=== PATIENT | female | born 2000 | race Caucasian/White ===

== ENCOUNTER 2025-11-02 15:36 | Emergency (ER) | payer OTHER ==
--- NOTE | 2025-11-02 15:43 | ERPHSYRPT ---
- History of Present Illness Time Seen by Provider: 11/02/25 15:42 Source: patient Exam Limitations: no limitations Physician History: This is an obese 25-year-old white female patient who presents to the emergency department 10 days spontaneous vaginal delivery with the complaint of 1 day history of right lower quadrant pain that responds to ibuprofen but recurred today worse than yesterday. There has been no associated vomiting or diarrhea. She is not breast-feeding. There is been no other symptoms per her report. Patient has had a cholecystectomy in the past but no other intra- abdominal or pelvic surgeries. Timing/Duration: yesterday, worse Activites at Onset: none Quality: sharpness, stabbing Onset Location: RLQ Severity of Pain-Max: moderate Severity of Pain-Current: mild Sexual intercourse history: non-contributory Modifying Factors: Improves With: nothing Associated Symptoms: abdominal pain (Right lower quadrant) Allergies/Adverse Reactions: No Known Drug Allergies Allergy (Unverified 10/23/25 03:05) Home Medications: Aspirin 81 gm Chew [Baby Aspirin 81 mg Chew] 81 mg PO DAILY 10/22/25 [History] Ferrous Sulfate 325 mg PO DAILY 10/22/25 [History] No122/Iron/Folic Acid [ Multi Tablet] 1 each PO DAILY 10/22/25 [History] Travel Risk - International Travel Have you traveled outside of the country in past 3 weeks: No - Emerging Infectious Disease Are you exhibiting symptoms associated with any current EIDs: No - Review of Systems Constitutional: No Symptoms Eyes: No Symptoms Ears, Nose, & Throat: No Symptoms Respiratory: No Symptoms Cardiac: No Symptoms Abdominal/Gastrointestinal: Abdominal Pain (Right lower quadrant) Genitourinary Symptoms: No Symptoms Musculoskeletal: No Symptoms Skin: No Symptoms Neurological: No Symptoms Psychological: No Symptoms Endocrine: No Symptoms Hematologic/Lymphatic: No Symptoms Immunological/Allergic: No Symptoms All Other Systems: Reviewed and Negative - Past Medical History Pertinent Past Medical History: No Neurological History: No Pertinent History ENT History: No Pertinent History Cardiac History: No Pertinent History Respiratory History: No Pertinent History Endocrine Medical History: No Pertinent History Musculoskeletal History: No Pertinent History GI Medical History: No Pertinent History History: No Pertinent History Psycho-Social History: No Pertinent History Female Reproductive Disorders: No Pertinent History - Past Surgical History Past Surgical History: Yes Neuro Surgical History: No Pertinent History Cardiac: No Pertinent History Respiratory: No Pertinent History Gastrointestinal: Cholecystectomy Genitourinary: No Pertinent History Musculoskeletal: No Pertinent History Female Surgical History: No Pertinent History Other Surgical History: wisdom tooth removal - Social History Smoking Status: Former smoker How long have you smoked: 7 years Exposure to second hand smoke: Yes Drug Use: none - Social Determinants of Health Will the patient participate in the screening: Yes Do you worry about a steady place to live?: No In the past 12 months,have you had to go without utilities?: No Transportation Issues: No Has anyone in your support network made you feel unsafe?: No Have you or anyone in your house had to go w/o enough food: No - Nursing Vital Signs Nursing Vital Signs: Initial Vital Signs Temperature 97.9 F 11/02/25 15:37 Pulse Rate 71 11/02/25 15:37 Respiratory Rate 18 11/02/25 15:37 Blood Pressure 120/56 11/02/25 15:37 O2 Sat by Pulse Oximetry 96 11/02/25 15:37 Pain Scale Pain Intensity 6 - Physical Exam General Appearance: no apparent distress, alert, anxiety, obese Eye Exam: PERRL/EOMI, eyes nml inspection Ears, Nose, Throat Exam: normal ENT inspection, moist mucous membranes Neck Exam: normal inspection, non-tender, supple Respiratory Exam: normal breath sounds, lungs clear, airway intact, No chest tenderness, No respiratory distress Cardiovascular Exam: regular rate/rhythm, normal heart sounds, normal peripheral pulses Gastrointestinal/Abdomen Exam: soft, normal bowel sounds, tenderness (Right lower quadrant to palpation), guarding (Right lower quadrant palpation), rebound (Mild right lower quadrant to palpation) Pelvic Exam: not done Rectal Exam: not done Back Exam: normal inspection, normal range of motion, No CVA tenderness, No vertebral tenderness Extremity Exam: normal inspection, normal range of motion, pelvis stable Neurologic Exam: alert, oriented x 3, cooperative, siding stapler II-XII nml as tested, nml cerebellar function, nml station & gait, sensation nml Skin Exam: normal color, warm, dry Lymphatic Exam: No adenopathy SpO2 Interpretation: normal O2 Delivery: Room Air - Course Nursing assessment & vital signs reviewed: Yes Ordered Tests: Active Orders 24 hr Category Date Time Status IV Insertion STAT Care 11/02/25 16:35 Active ABDOMEN AND PELVIS W/0 CONTRAS [CT] Stat Exams 11/02/25 16:36 Completed AMYLASE Stat Lab 11/02/25 16:45 Completed CBC W DIFF Stat Lab 11/02/25 16:45 Completed CMP Stat Lab 11/02/25 16:45 Completed CULTURE,URINE Stat Lab 11/02/25 16:36 Received LIPASE Stat Lab 11/02/25 16:45 Completed UA W/RFX UR CULTURE Stat Lab 11/02/25 16:36 Completed Medication Summary Discontinued Medications Generic Name Dose Route Start Last Admin Trade Name Freq PRN Reason Stop Dose Admin Cefdinir 300 mg 11/02/25 18:41 Cefdinir 300 Mg Capsule PO 11/02/25 18:42 STAT ONE Sodium Chloride 1,000 mls @ 999 mls/hr 11/02/25 16:35 11/02/25 18:27 Sodium Chloride 0.9% 1000 Ml IV 11/02/25 17:35 Infused .Q1H1M STA Infusion Sodium Chloride Confirm 11/02/25 17:03 Sodium Chloride 0.9% 1000 Ml Administered 11/02/25 17:04 Dose 1,000 mls @ ud .ROUTE .STK-MED ONE Lab/Rad Data: Laboratory Result Diagrams 11/02/25 16:45 11/02/25 16:45 Laboratory Results 11/02/25 11/02/25 11/02/25 Range/Units 16:45 16:45 16:36 WBC 8.8 (3.98-10.04) x10^3/uL RBC 4.52 (3.93-5.22) x10^6/uL Hgb 13.1 (11.2-15.7) g/dL Hct 38.8 (34.1-44.9) % MCV 85.8 (79.4-94.8) fL MCH 29.0 (25.6-32.2) pg MCHC 33.8 (32.2-35.5) g/dL RDW 13.2 (11.7-14.4) % Plt Count 406 H (182-369) x10^3/uL MPV 10.1 (9.4-12.3) fL Gran % 72.8 H (34.0-71.1) % Immature Gran % (Auto) 0.3 (0.001-0.429) % Nucleat RBC Rel Count 0.0 (0.00-0.2) % Eos # (Auto) 0.06 (0.04-0.36) x10^3/uL Immature Gran # (Auto) 0.03 (0.001-0.031) x10^3u/L Absolute Lymphs (auto) 1.64 (1.18-3.74) x10^3/uL Absolute Monos (auto) 0.63 (0.24-0.86) x10^3/uL Absolute Nucleated RBC 0.00 (0.00-0.012) x10^3u/L Lymphocytes % 18.7 L (19.3-51.7) % Monocytes % 7.2 (4.7-12.5) % Eosinophils % 0.7 (0.7-5.8) % Basophils % 0.3 (0.1-1.2) % Absolute Granulocytes 6.36 H (1.56-6.13) x10^3/uL Basophils # 0.03 (0.01-0.08) x10^3/uL Sodium 136 (135-145) mmol/L Potassium 3.7 (3.5-5.1) mmol/L Chloride 102 (98-107) mmol/L Carbon Dioxide 24 (22-30) mmol/L Anion Gap 13.3 (5-15) MEQ/L BUN 12 (7-17) mg/dL Creatinine 0.64 (0.52-1.04) mg/dL Estimated GFR 127.3 ML/MIN Glucose 91 (74-106) mg/dL Calcium 9.9 (8.4-10.2) mg/dL Total Bilirubin 0.50 (0.2-1.3) mg/dL AST 24 (14-36) U/L ALT 21 (0-35) U/L Alkaline Phosphatase 114 (38-126) U/L Serum Total Protein 8.0 (6.3-8.2) g/dL Albumin 4.2 (3.5-5.0) g/dL Amylase 59 (30-110) U/L Lipase 49 (23-300) U/L Urine Color Yellow (Yellow) Urine Appearance Cloudy A (Clear) Urine pH 5.5 (4.6-8.0) Ur Specific [place] 1.020 (1.005-1.030) Urine Protein 300 A (Negative) Urine Glucose (UA) Negative (Negative) mg/dL Urine Ketones Negative (Negative) Urine Blood Moderate A (Negative) Urine Nitrite Positive A (Negative) Urine Bilirubin Negative (Negative) Urine Urobilinogen 0.2 (0.2) mg/dL Ur Leukocyte Esterase Moderate A (Negative) U Hyaline Cast (Auto) 3-5 A (0-2) /LPF Urine Microscopic RBC 6-10 A (0-5) /HPF Urine Microscopic WBC >100 A (0-5) /HPF Ur Epithelial Cells None Seen (None Seen) /HPF Urine Bacteria Many A (None Seen) /HPF Urine Culture Reflexed YES (NO) - Progress Progress: re-examined Air Movement: good Progress Note: 11/02/25 16:50 My medical decision making and the assignment of moderate complexity of this patient's medical issue today is based on review of the patient's past medical history, reviewed the patient's medication list, reviewed patient drug allergy list, history present illness and physical findings on examination. The workup in this patient includes placement of intravenous line, infusion of normal saline solution, CBC, CMP, amylase, lipase, urinalysis, CT scan of the abdomen pelvis without contrast. Patient does not require any antiemetics or desire any pain medicine at this time. Differential diagnosis includes was not limited to acute ovarian pathology, intra-abdominal fluid collection, infected intra-abdominal fluid collection, pyelonephritis, ureterolithiasis, acute appendicitis 11/02/25 17:37 The urinalysis is pending. I interpreted the remainder of the laboratory data results. Based on the laboratory data results there are no acute, emergent medical issues. The CT scan of the abdomen pelvis was interpreted by the radiologist and I reviewed the impression. The impression states nonspecific prominent uterus. Remaining CT scan of the abdomen pelvis without contrast is normal. There is no evidence of stomach or bowel obstruction. The appendix is normal. There is no evidence of free fluid or free air. 11/02/25 18:42 I interpreted the urinalysis as urinary tract infection. Blood Culture(s) Obtained: No Antibiotics given: Yes Medical Desision Making - Risk of complications Low Risk: Low risk of morbidity from additional dx testing or treatment The pt has a mod risk of morbidity or mortality based on: Need for prescription drug management - Departure Departure Disposition: Home Clinical Impression: Abdominal pain, UTI (urinary tract infection) Condition: Stable Critical Care Time: No Referrals: CHRIS VICTOR DO [Primary Care Provider, OBSTETRICS-GYNECOLOGY] - Follow up/PCP as directed Additional Instructions: Drink plenty of fluids. Use Tylenol and ibuprofen for pain control. Take your antibiotics as prescribed. Call your primary care provider tomorrow, 11/03/2025, to make arrangements for follow-up appointment for further evaluation and management and to be seen in the next 5 to 7 days. Prescriptions: Cefdinir 300 mg PO BID #14 cap
[2025-11-02 16:51] LABS: BASOPHIL % 0.3 % (0.1-1.2); Basophil (Absolute #) 0.03 x10^3/uL (0.01-0.08); Eosinophil (Absolute #) 0.06 x10^3/uL (0.04-0.36); Hematocrit 38.8 % (34.1-44.9); Hemoglobin 13.1 g/dL (11.2-15.7); IMMATURE GRAN # 0.03 x10^3u/L (0.001-0.031); IMMATURE GRAN % 0.3 % (0.001-0.429); Lymphocyte (Absolute #) 1.64 x10^3/uL (1.18-3.74); Mean Corpuscular Hemoglobin 29.0 pg (25.6-32.2); Mean Corpuscular Hgb Concent. 33.8 g/dL (32.2-35.5); Monocyte (Absolute #) 0.63 x10^3/uL (0.24-0.86); NUCLEATED RBC # 0.00 x10^3u/L (0.00-0.012); NUCLEATED RBC % 0.0 % (0.00-0.2); Platelet Count 406 x10^3/uL (182-369); Red Blood Count 4.52 x10^6/uL (3.93-5.22); White Blood Count 8.8 x10^3/uL (3.98-10.04)
[2025-11-02 16:57] VITALS: RESP 18; TEMP 97.9
[2025-11-02 17:04] LABS: Calcium 9.9 mg/dL (8.4-10.2); Carbon Dioxide 24.0 mmol/L (22-30); Creatinine 1 0.64 mg/dL (0.52-1.04); EST GLOMERULAR FILTRATION RATE 127.3 ML/MIN; Glucose 91.0 mg/dL (74-106); Potassium 3.7 mmol/L (3.5-5.1); SGOT/AST 24.0 U/L (14-36); SGPT/ALT 21.0 U/L (0-35); Total Protein 8.0 g/dL (6.3-8.2)
--- NOTE | 2025-11-02 17:08 | XRAY ---
Indication: Right lower quadrant pain. Multiple contiguous axial images obtained through the abdomen and pelvis without contrast. Comparison: None Lung bases clear. Heart not enlarged. Noncontrasted stomach and bowel loops appear nonobstructed with normal appendix. Prominent uterus. Previous cholecystectomy. No free fluid/air. Remaining liver, pancreas, spleen, adrenal glands, kidneys, ureters, bladder, uterus, and aorta are unremarkable for noncontrast exam. Osseous structures intact. Impression: Nonspecific prominent uterus. Remaining CT abdomen/pelvis without contrast is normal.
[2025-11-02 18:14] LABS: Glucose, Urine Negative (Negative); Protein,Urine Dip 300 (Negative); WBC >100 /HPF (0-5)
[2025-11-02 18:55] VITALS: BP 128/74; PULSE 68; O2SAT 99
[2025-11-02] MEDS: OMNICEF 300 MG PO ONE (19:17)
== END 2025-11-02 19:26 | disposition home or self-care (01) ==
LOC: ED 15:36
DX: O86.20 Urinary tract infection following delivery, unspecified (principal); N39.0 Urinary tract infection, site not specified; R10.31 Right lower quadrant pain; Z79.899 Other long term (current) drug therapy